=== PATIENT | female | born 1975 | race African-American/Black ===

== ENCOUNTER 2025-06-27 10:16 | Emergency (ER) | payer MEDICARE, MEDICAID ==
[~2025-06-27] VITALS: Ht 165.1 cm; Wt 98.0 kg
[~2025-06-27 10:16] MED LIST: ACET-3161 PO; FERR-63 PO; RANI-655 PO
[2025-06-27 10:21] VITALS: O2SAT 99
[2025-06-27 10:42] LABS: CLARITY URINE CLEAR (CLEAR); COLOR URINE YELLOW (YELLOW); GLUCOSE URINE 3+ (NEGATIVE); KETONES URINE NEGATIVE (NEGATIVE); LEUKOCYTE ESTERASE URINE NEGATIVE (NEGATIVE); NITRITE URINE NEGATIVE (NEGATIVE); OCCULT BLOOD URINE 3+ (NEGATIVE); PH URINE 6.0 (4.5-8.0); PROTEIN URINE NEGATIVE (NEGATIVE); SPECIFIC GRAVITY URINE 1.006 (1.005-1.030); UROBILINOGEN URINE 0.2 E.U./dL (0.2-1.0)
[2025-06-27 10:59] LABS: BASOPHILS % 0.5 % (0.0-2.0); EOSINOPHILS % 0.3 % (0.0-5.0); HEMATOCRIT. 31.6 % (36.0-48.0); HEMOGLOBIN. 9.6 g/dL (12.0-16.0); LYMPHOCYTES % 20.5 % (20.0-50.0); MEAN PLATELET VOLUME 7.6 fl (7.4-10.4); MONOCYTES % 3.8 % (2.0-8.0); NEUTROPHILS % 74.9 % (40.0-76.0); PLATELET 533 x1000/uL (130-400); RED BLOOD CELL COUNT 5.01 mill/uL (4.2-5.4); RED CELL DISTRIBUTION WIDTH 22.9 % (11.6-14.6)
[2025-06-27 11:00] LABS: ADD RBC MORPHOLOGY YES
[2025-06-27 11:08] LABS: CREATININE 0.9 mg/dL (0.6-1.0); UREA NITROGEN BLOOD 6 mg/dL (9-23)
[2025-06-27 11:09] LABS: INR 1.0; TROPONIN I HIGH SENSITIVITY < 4 ng/L (3.0-34)
[2025-06-27 11:18] LABS: HCG SCREEN NEGATIVE
[2025-06-27 11:35] LABS: SQUAMOUS EPITHELIAL CELL URINE 1+ /lpf (RARE/1+); WBC URINE 0-2 /hpf (0-2)
[2025-06-27 11:37] LABS: BACTERIA URINE NONE SEEN
[2025-06-27] MEDS: MORPHINE SULFATE 4 MG/ML INJ (FOR IV/IM USE) IV ONE (12:07)
[2025-06-27] MEDS: ACETAMINOPHEN 325MG TABLET PO ONE (12:27)
[2025-06-27] MEDS: ONDANSETRON HCL 4MG/2ML INJ IV SCH (12:28)
[2025-06-27] MEDS: SODIUM CHLORIDE 0.9% 1,000 ML IV ONE (12:28)
[2025-06-27 13:59] LABS: PLATELET ESTIMATE INCREASED
[2025-06-27] MEDS ORDERED: DIPHENHYDRAMINE 50MG/ML VIAL IV ONE (14:30)
[2025-06-27] MEDS ORDERED: METOCLOPRAMIDE HCL 10MG TABLET PO ONE (14:30)
[2025-06-27] MEDS: KETOROLAC 30MG/ML VIAL IV ONE (15:38)
[2025-06-27 15:45] VITALS: BP 116/75; PULSE 70; RESP 16; TEMP 36.9; O2SAT 98
== END 2025-06-27 15:54 | disposition home or self-care (01) ==
LOC: ER 10:16
DX: R42 Dizziness and giddiness (principal); R07.89 Other chest pain; E11.9 Type 2 diabetes mellitus without complications; I10 Essential (primary) hypertension; Z91.041 Radiographic dye allergy status; Z98.890 Other specified postprocedural states; Z87.891 Personal history of nicotine dependence
CPT/HCPCS: 99285; 78582; 70450; 96374; 96375; 71045; 96361; 80048; 81003; 82550; 84703; 85025; 85379; 85610; 85730; 84484; 36415; 84145; 74176; 93005; J1885; A9558; J2405; J2270; J7030; A9540